=== PATIENT | male | born 1965 | race Caucasian/White ===

== ENCOUNTER 2021-12-07 18:42 | Emergency (ER) | payer BC ==
[~2021-12-07] VITALS: Ht 182.9 cm; Wt 136.1 kg
[~2021-12-07 18:42] MED LIST: AZIT250 PO; GLIM2 PO; Lisinopril2.5 MG; METF500 PO; PRAV20 PO; Prednisone10 MG PO
== END 2021-12-07 20:25 | disposition home or self-care (01) ==
LOC: ER 18:42
DX: S61.012A Laceration without foreign body of left thumb without damage to nail, initial encounter (principal); I10 Essential (primary) hypertension; E11.9 Type 2 diabetes mellitus without complications; Z23 Encounter for immunization; W26.0XXA Contact with knife, initial encounter; Z79.899 Other long term (current) drug therapy; Z79.84 Long term (current) use of oral hypoglycemic drugs; Z79.52 Long term (current) use of systemic steroids
CPT/HCPCS: 90714

== ENCOUNTER 2021-12-13 08:04 | Day surgery (SDC) | payer BC ==
[~2021-12-13] VITALS: Ht 182.9 cm; Wt 135.0 kg
[~2021-12-13 08:04] MED LIST changes: +ASPI81CH PO; +ATOR40TA PO; +GLUCOPHAGE1000 M3 PO; +INSULANI SC; +Prinivil10 MG PO; +VITAMIN D310 MC5 PO
--- NOTE | 2021-12-13 11:45 | NUR ---
PT GIVEN DC INSTRUCTIONS AND VERBALIZED UNDERSTANDING. IV OUT. CLOTH DOT PLACED. ARM BOARD AND SLING APPLIED. PT TAKEN TO PARKING LOT VIA WC. FAMILY TO TAKE PT HOME.
== END 2021-12-13 12:00 | disposition home or self-care (01) ==
LOC: MHTC 08:04
DX: I25.10 Atherosclerotic heart disease of native coronary artery without angina pectoris (principal); E66.01 Morbid (severe) obesity due to excess calories; I10 Essential (primary) hypertension; E78.5 Hyperlipidemia, unspecified; Z91.013 Allergy to seafood; Z88.8 Allergy status to other drugs, medicaments and biological substances; Z79.82 Long term (current) use of aspirin; Z79.4 Long term (current) use of insulin; Z79.84 Long term (current) use of oral hypoglycemic drugs; Z68.41 Body mass index [BMI] 40.0-44.9, adult
CPT/HCPCS: 76937; 93458; 99152; 99153; C1769; C1887; C1894; J1200; J1644; J1720; J2250; J3010; J7030; J7040; Q9967